=== PATIENT | male | born 1960 | race Caucasian/White ===

== ENCOUNTER 2020-01-21 15:44 | Emergency (ER) | payer BC, SELFPAY ==
[2020-01-21 15:44] VITALS: BP 106/67; PULSE 78; RESP 16; TEMP 36.9; O2SAT 98; BMI 64.0
--- NOTE | 2020-01-21 15:52 | XR_ITS ---
PROCEDURE: XR FEMUR RT 2V CLINICAL INDICATION: Fall, Leg Pain COMPARISON: No exams were available for comparison FINDINGS: No fracture or dislocation. No lytic or blastic change. There is normal mineralization. The joint spaces are well-preserved. No significant degenerative/arthritic changes. No erosive changes evident. Other findings:None. IMPRESSION: No acute findings. Dictated by: Dr. Kendall Mireles MD 01/21/2020 16:[address] Kendall Mireles MD in [place] 01/21/2020 16:59
--- NOTE | 2020-01-21 15:59 | XR_ITS ---
PROCEDURE: XR PELVIS 1-2V CLINICAL INDICATION: Pain COMPARISON: No exams were available for comparison TECHNIQUE: XR Pelvis AP View FINDINGS: No fracture or dislocation is evident. No significant degenerative change. No lytic or blastic change. IMPRESSION: No acute findings. Dictated by: Dr. Kendall Mireles MD 01/21/2020 16:[address] Kendall Mireles MD in [place] 01/21/2020 16:57
--- NOTE | 2020-01-21 15:59 | XR_ITS ---
PROCEDURE: XR HIP RT 2-3V W/PELVIS CLINICAL INDICATION: Pain COMPARISON: XR PELVIS 1-2V from 01/21/2020 FINDINGS: No fracture or dislocation is evident. There is mild asymmetrical joint space narrowing right hip. The SI joints and symphysis pubis appear normal. IMPRESSION: Mild osteoarthritic change right hip, no acute fracture seen Dictated by: Dr. Kendall Mireles MD 01/21/2020 16:[address] Kendall Mireles MD in [place] 01/21/2020 16:58
--- NOTE | 2020-01-21 16:02 | PC.NURSE ---
Pt to rad
[2020-01-21 16:16] VITALS: BP 100/65; PULSE 69; O2SAT 96
--- NOTE | 2020-01-21 16:16 | PC.NURSE ---
Pt returned from rad
--- NOTE | 2020-01-21 16:24 | [facility].EDGENADL ---
ED Disposition Clinical Impression: Thigh pain, musculoskeletal Disposition: Home, Self-Care Condition on Discharge: Good Instructions: DI for Acute Pain -- Adult Prescriptions: Nabumetone 750 mg PO BID 10 Days #20 tab Prescription Printed Methocarbamol [Robaxin 500mg Tab*] 500 mg PO QID 10 Days #30 tab Prescription Printed Acetaminophen with Codeine [Tylenol with Codeine #3 tablet] 1 each PO QID 3 Days #12 tab Prescription Printed Referrals: Ryan Guzman [Primary Care Provider] - - Critical Care Critical Care Time: No Attestation: On 01/21/20, the high probability of a clinically significant, sudden or life threatening deterioration of the following system(s) required my full and direct attention, intervention and personal management. The time I documented below is in addition to time spent performing reported procedures but includes the following listed in this critical care notation. Medical Decision Making - Medical Records Medical records reviewed: Yes: I reviewed the patient's medical records. - Earl Inquiry Pt receiving controlled substance: No Vital Signs: 01/21/20 15:44 01/21/20 16:16 Temperature 98.5 F Temperature Source Oral Pulse Rate [Left Radial] 78 69 Respiratory Rate 16 Blood Pressure [Right Arm] 106/67 L 100/65 L Blood Pressure Mean [Right Arm] 80 76 Blood Pressure Source [Right Arm] Manual Cuff/ Palpation Automatic Cuff Blood Pressure Position [Right Arm] Sitting Sitting 02 Sat by Pulse Oximetry 98 96 Oxygen Delivery Method Room Air Room Air - Lab Data Lab results reviewed: Yes: I reviewed the patient's lab results. Orders (Tests/Meds): ED MEDICATIONS Discontinued Medications Generic Name Dose Route Start Last Admin Trade Name Feli PRN Reason Stop Dose Admin Hydromorphone HCl 1 mg 01/21/20 16:06 01/21/20 16:07 Dilaudid 2mg/Ml Syringe IV 01/21/20 16:07 1 mg ONCE ONE Administration Ondansetron HCl 4 mg 01/21/20 16:05 01/21/20 16:07 Zofran 4mg/2ml Vial IV 01/21/20 16:06 4 mg ONCE ONE Administration ORDERS Category Date Time Status XR femur RT 2V Stat Exams 01/21/20 15:52 Taken XR hip RT 2-3V w/pelvis Stat Exams 01/21/20 15:59 Taken XR pelvis 1-2V Stat Exams 01/21/20 15:59 Taken - Radiology Data #1 Image(s): Pelvis, Hip, Femur Preliminary Findings: Normal/NAD General Adult HPI - General Chief complaint: PAIN Stated complaint: AO 01/20 @ 1515 injury right leg Time Seen by Provider: 01/21/20 16:20 Mode of Arrival: Family Vehicle Limitations: No Limitations Description of Symptoms (Recalled from ER Triage Doc. by RN): to ed per pvt car with c/o rt thigh pain pt states stepped down in a hole and was pushing up out of hole and heard a pop rt thigh with sudden onset of pain. pt states unable to bear weight. pedal pulses strong - History of Present Illness HPI narrative: 59-year-old male presents the ED complaining about right thigh pain. Patient was putting in his back door in his house that he had Rao up some concrete and he stepped in a hole and twisted and felt a pop in his thigh. He presents with an acute sharp pain to his thigh and rates his pain 8 out of 10. Alleviating factors include rest exacerbating factors include movement. Patient denies any other trauma. - Related Data Previous Rx's Medication Instructions Recorded Acetaminophen with Codeine 1 each PO QID 3 Days #12 tab 01/21/20 [Tylenol with Codeine #3 tablet] Methocarbamol [Robaxin 500mg Tab*] 500 mg PO QID 10 Days #30 tab 01/21/20 Nabumetone 750 mg PO BID 10 Days #20 tab 01/21/20 Allergies Allergy/AdvReac Type Severity Reaction Status Date / Time meperidine [From Demerol] Allergy Verified 01/21/20 16:05 [facility] History - Hepatitis A Screen Drug use history?: No High risk sexual behaviors?: No History of sexually transmitted infection?: No Currently employed?: No Childcare worker?: No Do you have indoor pl
[2020-01-21 16:33] VITALS: BP 97/65; PULSE 68; O2SAT 93
[2020-01-21 17:07] VITALS: BP 110/68; PULSE 78; RESP 16; TEMP 36.6; O2SAT 98
== END 2020-01-21 17:08 | disposition home or self-care (01) ==
PROVIDERS: Emergency Provider Family Medicine; PCP Internal Medicine
DX: S76.911A Strain of unspecified muscles, fascia and tendons at thigh level, right thigh, initial encounter (principal); X50.1XXA Overexertion from prolonged static or awkward postures, initial encounter; Y92.89 Other specified places as the place of occurrence of the external cause
CPT/HCPCS: 72170; 73502; 73552; 96374; 96375; 99282; J2405